=== PATIENT | male | born 1995 | race Caucasian/White ===

== ENCOUNTER 2021-09-08 16:35 | Emergency (ER) | payer SELFPAY ==
[2021-09-08] MEDS ORDERED: Metoclopramide HCl 10 MG/2 ML VIAL ONE ×2 (17:02→17:48)
[2021-09-08] MEDS ORDERED: Sodium Chloride 0.9% 1,000 ML ONE (17:02)
[2021-09-08] MEDS ORDERED: diphenhydrAMINE 50 MG/ML VIAL ONE (17:02)
[2021-09-08] MEDS ORDERED: Ketorolac Tromethamine 30 MG/ML VIAL ONE (17:48)
[2021-09-08] MEDS ORDERED: Sodium Chloride 0.9% 100 ML ONE (17:48)
== END 2021-09-08 18:44 | disposition home or self-care (01) ==
LOC: NAV ERS 16:35
DX: G43.909 Migraine, unspecified, not intractable, without status migrainosus (principal); F17.210 Nicotine dependence, cigarettes, uncomplicated
CPT/HCPCS: 96365; 96366; 96375; J1200; J1885; J2765; J7050

== ENCOUNTER 2021-12-14 19:14 | Emergency (ER) | payer OTHER, SELFPAY ==
[2021-12-14] MEDS ORDERED: Fentanyl 100 MCG/2 ML VIAL ONE (20:24)
[2021-12-14] MEDS ORDERED: Ondansetron PF 4 MG/2 ML Vial ONE (20:24)
[2021-12-14] MEDS ORDERED: Ketorolac Tromethamine 30 MG/ML VIAL ONE (20:39)
[2021-12-14] MEDS ORDERED: Morphine 4 MG/ML VIAL ONE (21:03)
== END 2021-12-14 21:30 | disposition home or self-care (01) ==
LOC: NAV ERS 19:14
DX: S42.022A Displaced fracture of shaft of left clavicle, initial encounter for closed fracture (principal); S59.202A Unspecified physeal fracture of lower end of radius, left arm, initial encounter for closed fracture; F17.200 Nicotine dependence, unspecified, uncomplicated; V86.99XA Unspecified occupant of other special all-terrain or other off-road motor vehicle injured in nontraffic accident, initial encounter
CPT/HCPCS: 29125; 72125; 96374; 96375; J1885; J2270; J2405; J3010